=== PATIENT | female | born 1950 | race Caucasian/White ===

== ENCOUNTER → 2024-07-09 11:05 | Outpatient (REF) | payer BC, MEDICARE, SELFPAY | LOC: RAD 11:05 | PROVIDERS: ATTENDING PHYSICIAN Surgery; FAMILY PHYSICIAN Family Medicine | DX: R93.89 Abnormal findings on diagnostic imaging of other specified body structures (principal); C50.411 Malignant neoplasm of upper-outer quadrant of right female breast; Z17.0 Estrogen receptor positive status [ER+]; C50.911 Malignant neoplasm of unspecified site of right female breast | CPT/HCPCS: 71260; 74178; Q9967 ==

== ENCOUNTER → 2025-05-25 06:50 | Outpatient (REF) | payer OTHER, SELFPAY | LOC: HWRAD 06:50 | PROVIDERS: ATTENDING PHYSICIAN Family Medicine | DX: R91.8 Other nonspecific abnormal finding of lung field (principal); K83.8 Other specified diseases of biliary tract | CPT/HCPCS: 71250; 76700 ==